=== PATIENT | male | born 1960 | race Caucasian/White ===

== ENCOUNTER → 2016-07-30 | Outpatient (CLI) | payer OTHER | LOC: GMAM 17:41 | PROVIDERS: ATTEND Family Medicine | DX: R10.84 Generalized abdominal pain (principal) ==

== ENCOUNTER → 2016-08-02 | Outpatient (CLI) | payer OTHER, SELFPAY ==
--- NOTE | 2016-08-02 11:58 | CT ---
EXAM DESCRIPTION: CT ABDOMEN PELVIS WITH IV CONTRAST CLINICAL HISTORY: ABD PAIN COMPARISON: July 09, 2013 TECHNIQUE: Post-contrast CT images of the abdomen and pelvis are obtained. CT scan done according to ALARA (As Low As Reasonably Achievable). FINDINGS: Visualized lung bases show mild scarring or atelectasis in the lung bases left greater than right. Liver, spleen, pancreas, and adrenal glands are unremarkable. There are surgical clips from cholecystectomy without evidence of biliary tract obstruction. Mild atherosclerotic disease is seen. Kidneys show no abnormal calcifications. No ureteral calcification or obstruction. Urinary bladder is unremarkable. Moderate prostate calcifications are seen. The appendix is within normal limits. No small bowel obstruction. Colon is mostly fluid filled. No obvious bowel wall thickening or associated inflammatory changes are seen. No pathologically enlarged abdominal or retroperitoneal lymphadenopathy is seen. Osseous structures show no aggressive bony lesions. Mild degenerative changes of the spine are seen. IMPRESSION: No acute findings on post-contrast CT of the abdomen and pelvis. Interval postsurgical changes from cholecystectomy. Electronically signed by: Leonel Lazo MD 08/02/2016 11:55
== END ==
LOC: CT 10:33
PROVIDERS: ATTEND Family Medicine
DX: R10.84 Generalized abdominal pain (principal); Z98.890 Other specified postprocedural states; Z90.49 Acquired absence of other specified parts of digestive tract

== ENCOUNTER 2017-03-31 05:46 | Day surgery (SDC) | payer OTHER, SELFPAY ==
[2017-03-31] MEDS ORDERED: LACTATED RINGERS 1,000 ML ONE (06:47)
[2017-03-31] MEDS ORDERED: PROPOFOL 200 MG/20 ML VIAL IV ONE (07:00)
[2017-03-31 08:28] VITALS: O2SAT 97
[2017-03-31 08:51] VITALS: BP 120/85; TEMP 97.8
--- NOTE | 2017-03-31 09:03 | OP ---
DATE OF PROCEDURE: 03/31/17 PREOPERATIVE DIAGNOSIS: 1. History of colonic polyps. POSTOPERATIVE DIAGNOSIS: 1. Thickened fold in the distal transverse colon. 2. Colonoscopy completed to the cecum with adequate prep. PROCEDURE: 1. Colonoscopy. SURGEON: Zhang Moeller MD ANESTHESIA: Per Maurisio Montgomery CRNA. COMPLICATIONS: None apparent. ESTIMATED BLOOD LOSS: Less than 1 mL. TECHNIQUE: The patient was brought to the GI lab and laid in the left lateral decubitus position. Digital rectal exam was performed and found to be normal. The colonoscope was inserted into the rectum and slowly through to the cecum. The cecum was well visualized. The prep was noted throughout the colon to be adequate, but somewhat limited. There was a significant amount of fecal material that we were able to suction and felt like we had adequate visualization. The cecum was well visualized. The ileocecal valve was visualized, but not cannulated. The scope was withdrawn from the cecum into the ascending colon, which appeared normal, back into the transverse colon, the proximal portion of which appeared normal. In the distal transverse colon, there was a fold that appeared slightly thickened. I think this was just a fold , but we did biopsy it to be sure. The scope was then withdrawn on into the descending colon, which appeared normal, into the sigmoid colon, which also appeared normal. Again a fairly significant amount of fecal material was noted , but through suctioning and repositioning of the scope, we felt like we were able to see adequately. The scope was withdrawn gradually through to the rectum. In the rectum, the scope was retroflexed. The ileal pectinate line was visualized. There were no polyps noted in the rectum. The scope was withdrawn from the rectum. The patient tolerated the procedure well. There were no obvious complications. He will recover in the Recovery Room until he is cleared from an anesthesia standpoint, then he will be discharged home. He will followup with me in one week. #[id number] [facility]OS[facility]ITALPamela
== END 2017-03-31 08:40 | disposition home or self-care (01) ==
LOC: AMB 05:46
PROVIDERS: ATTEND Family Medicine
DX: Z12.11 Encounter for screening for malignant neoplasm of colon (principal); K92.89 Other specified diseases of the digestive system; G47.33 Obstructive sleep apnea (adult) (pediatric); I10 Essential (primary) hypertension; E78.5 Hyperlipidemia, unspecified; F32.9 Major depressive disorder, single episode, unspecified; F17.290 Nicotine dependence, other tobacco product, uncomplicated; J30.9 Allergic rhinitis, unspecified; M10.9 Gout, unspecified; Z86.010 Personal history of colon polyps; Z79.899 Other long term (current) drug therapy
CPT/HCPCS: 00810; 45378; J3490; J7120

== ENCOUNTER → 2017-09-23 | Outpatient (CLI) | payer OTHER | LOC: GMAJS 15:12 | PROVIDERS: ATTEND Physician Assistant | DX: J30.89 Other allergic rhinitis (principal) ==

== ENCOUNTER → 2020-06-12 | Outpatient (CLI) | payer OTHER | LOC: GMAM 16:59 | PROVIDERS: ATTEND Family Medicine | DX: Z00.00 Encounter for general adult medical examination without abnormal findings (principal) ==